=== PATIENT | female | born 1995 | race Caucasian/White ===

== ENCOUNTER → 2019-08-27 | Outpatient (CLI) | payer SELFPAY ==
[~2019-08-27] MED LIST: MOTRIN400 MG PO; NKHM
== END | disposition home or self-care (01) ==
LOC: COVID19 16:04
DX: Z03.818 Encounter for observation for suspected exposure to other biological agents ruled out (principal); Z78.9 Other specified health status; B34.9 Viral infection, unspecified; Z20.828 Contact with and (suspected) exposure to other viral communicable diseases

== ENCOUNTER → 2023-04-01 | Outpatient (CLI) | payer OTHER | END | disposition home or self-care (01) | LOC: US 00:41 | PROVIDERS: ATTEND Nurse Practitioner Primary Care | DX: D24.1 Benign neoplasm of right breast (principal) ==